=== PATIENT | male | born 1990 | race Hispanic/Latino ===

== ENCOUNTER 2018-03-06 22:44 | Emergency (ER) | payer SELFPAY ==
[2018-03-06 23:11] LABS: Absolute Lymphocytes (CBC) 3.4 K/uL (0.7-4.9); Absolute Monocytes 0.7 K/uL (0.1-1.3); Absolute Neutrophil 4.9 K/uL (1.8-8.0); Basophils % 0.3 % (0-1.3); Eosinophils % 1.9 % (0-4.4); Lymphocytes % 36.8 % (15.3-44.8); MCH 30.5 pg (27.0-35.0); MCV 89.7 fL (80-100); MPV 8.6 fL (7.6-11.3); Monocytes % 7.7 % (3.3-12.3); RBC Red Blood Cell Count 5.12 M/uL (4.33-5.43)
[2018-03-06 23:28] LABS: ALT/SGPT 57 U/L (12-78); AST/SGOT 29 U/L (15-37); Albumin 3.9 g/dL (3.4-5.0); Alkaline Phosphatase 103 U/L (45-117); BUN Blood Urea Nitrogen 13 mg/dL (7-18); Bicarbonate 27 mmol/L (21-32); Bilirubin Direct 0.1 mg/dL (0-0.2); Bilirubin Total 0.5 mg/dL (0.2-1.0); Glucose Level 105 mg/dL (74-106); Magnesium 2.2 mg/dL (1.8-2.4); Potassium 3.9 mmol/L (3.5-5.1); Protein, Total 8.2 g/dL (6.4-8.2); Sodium Level 142 mmol/L (136-145)
--- NOTE | 2018-03-07 01:36 | EDPHYS ---
Physician Documentation [facility] Name: Isra Gillespie Age: 27 yrs Sex: Male : 1990 Arrival Date: 03/06/2018 Time: 22:45 Bed 6 Private MD: ED Physician Chuckie Olmos HPI: 03/07 00:21 This 27 yrs old Male presents to ER via Ambulatory with complaints of pm1 Shortness Of Breath. 00:21 The patient has shortness of breath at rest. Onset: The symptoms/episode began/occurred pm1 at 21:00. Duration: The symptoms are continuous. The patient's shortness of breath is aggravated by nothing, is alleviated by nothing. Associated signs and symptoms: Pertinent positives: Chest pain onset at 2100, Pertinent negatives: non-productive cough, productive cough, diaphoresis, dizziness, fever, nausea, vomiting. The patient has not experienced similar symptoms in the past. The patient has not recently seen a physician. Historical: - Allergies: 00:13 Iodinated Contrast Media - IV Dye; tl1 - Home Meds: 03/06 22:59 None [Active]; tl1 - PMHx: 22:59 None; tl1 - PSHx: 22:59 None; tl1 - Immunization history:: Adult Immunizations up to date. - Social history:: Smoking status: Patient/guardian denies using tobacco, Patient uses alcohol, occasionally. - Ebola Screening: : Patient negative for fever greater than or equal to 101.5 degrees Fahrenheit, and additional compatible Ebola Virus Disease symptoms Patient denies exposure to infectious person Patient denies travel to an Ebola-affected area in the 21 days before illness onset. ROS: 03/07 01:28 Constitutional: Negative for fever, chills, and weight loss, Eyes: Negative for injury, pm1 pain, redness, and discharge, ENT: Negative for injury, pain, and discharge, Neck: Negative for injury, pain, and swelling. Abdomen/GI: Negative for abdominal pain, nausea, vomiting, diarrhea, and constipation, Back: Negative for injury and pain, : Negative for injury, bleeding, discharge, and swelling, MS/Extremity: Negative for injury and deformity, Skin: Negative for injury, rash, and discoloration, Neuro: Negative for headache, weakness, numbness, tingling, and seizure. Cardiovascular: Positive for chest pain, Negative for edema, orthopnea, palpitations. Respiratory: Positive for shortness of breath, at rest. Negative for cough, sputum production, wheezing. Exam: 01:28 Constitutional: This is a well developed, well nourished patient who is awake, alert, pm1 and in no acute distress. Head/Face: Normocephalic, atraumatic. Eyes: Pupils equal round and reactive to light, extra-ocular motions intact. Lids and lashes normal. Conjunctiva and sclera are non-icteric and not injected. Cornea within normal limits. Periorbital areas with no swelling, redness, or edema. ENT: Nares patent. No nasal discharge, no septal abnormalities noted. Tympanic membranes are normal and external auditory canals are clear. Oropharynx with no redness, swelling, or masses, exudates, or evidence of obstruction, uvula midline. Mucous membranes moist. Neck: Trachea midline, no thyromegaly or masses palpated, and no cervical lymphadenopathy. Supple, full range of motion without nuchal rigidity, or vertebral point tenderness. No Meningismus. Chest/axilla: Normal chest wall appearance and motion. Nontender with no deformity. No lesions are appreciated. Cardiovascular: Regular rate and rhythm with a normal S1 and S2. No gallops, murmurs, or rubs. Normal PMI, no JVD. No pulse deficits. Respiratory: Lungs have equal breath sounds bilaterally, clear to auscultation and percussion. No rales, rhonchi or wheezes noted. No increased work of breathing, no retractions or nasal flaring. Abdomen/GI: Soft, non-tender, with normal bowel sounds. No distension or tympany. No guarding or rebound. No evidence of tenderness throughout. Back: No spinal tenderness. No costovertebral tenderness. Full range of motion. 01:28 Skin: Warm, dry with normal turgor. Normal color with no rashes, no lesions, and no evidence of cellulitis. MS/ Extremity: Pulses equal, no cyanosis. Neurovascular intact. Full, normal range of motion. 01:28 NSR 01:28 Neuro: Orientation: is normal, Motor: is normal, moves all fours. Vital Signs: 03/06 22:58 BP 160 / 99; Pulse 76; Resp 16; Temp 98.9; Pulse Ox 98% ; Weight 104.33 kg; Height 5 tl1 ft. 9 in. (175.26 cm); Pain 0/10; 23:40 BP 140 / 94; Pulse 72; Resp 18; Pulse Ox 100% on R/A; tl2 03 00:30 BP 144 / 89; Pulse 57; Resp 18; Pulse Ox 97% on R/A; tl2 01:14 BP 132 / 87; Pulse 64; Resp 16; Pulse Ox 97% on R/A; Pain 0/10; tl1 01:38 BP 136 / 92; Pulse 63; Resp 17; Temp 98.8; Pulse Ox 98% on R/A; Pain 0/10; tl1 03/06 22:58 Body Mass Index 33.96 (104.33 kg, 175.26 cm) tl1 MDM: 03/06 22:51 Patient medically screened. pm1 03/07 01:29 Data reviewed: vital signs. pm1 01:35 Differential diagnosis: asthma, Myocardial Infarction pneumonia, Pulmonary Embolism pm1 Unstable Angina. 01:35 Counseling: I had a detailed discussion with the patient and/or guardian regarding: the pm1 historical points, exam findings, and any diagnostic results supporting the discharge/admit diagnosis, lab results, radiology results, the need for outpatient follow up, to return to the emergency department if symptoms worsen or persist or if there are any questions or concerns that arise at home. 01:35 Data interpreted: Pulse oximetry: on room air is 97 %. Interpretation: normal. pm1 01:41 ED course: Patient without any chest pain or shortness of breath. Refused pain pm1 medication in ER and for prescription. Troponin x2 negative with second troponin at four hours of onset of chest pain and shortness of breath. 03/06 22:54 Order name: Basic Metabolic Panel; Complete Time: 23:33 pm1 03/06 22:54 Order name: CBC with Diff; Complete Time: 23:33 pm1 03/06 22:54 Order name: LFT's; Complete Time: 23:33 pm1 03/06 22:54 Order name: Magnesium; Complete Time: 23:33 pm1 03/06 22:54 Order name: Troponin (emerg Dept Use Only); Complete Time: 23:33 pm1 03/06 22:54 Order name: D-Dimer; Complete Time: 23:33 pm1 03/06 22:54 Order name: XRAY Chest (1 view) pm1 03/06 22:54 Order name: EKG; Complete Time: 22:55 pm1 03/06 22:54 Order name: Cardiac monitoring; Complete Time: 23:00 pm1 03/06 22:54 Order name: EKG - Nurse/Tech; Complete Time: 23:00 pm1 03/06 22:54 Order name: IV Saline Lock; Complete Time: 23:00 pm1 03/06 22:54 Order name: Labs collected and sent; Complete Time: 23:00 pm1 03/06 22:54 Order name: O2 Per Protocol; Complete Time: 23:00 pm1 03/07 00:44 Order name: Troponin (emerg Dept Use Only): Draw \T\ 0100; Complete Time: 01:34 tl2 03/06 22:54 Order name: O2 Sat Monitoring; Complete Time: 23:00 pm1 Administered Medications: No medications were administered Disposition: 07:35 Co-signature as Attending Physician, Chuckie Olmos MD I agree with the assessment and [facility] plan of care. Disposition: 03/07/18 01:36 Discharged to Home. Impression: Chest pain, unspecified. - Condition is Stable. - Discharge Instructions: Nonspecific Chest Pain. - Work release form, Medication Reconciliation Form, Thank You Letter form. - Follow up: Emergency Department; When: As needed; Reason: Worsening of condition. Follow up: Private Physician; When: 2 - 3 days; Reason: Recheck today's complaints, Continuance of care, Re-evaluation by your physician. - Problem is new. - Symptoms have improved. Signatures: Dispatcher [employer] Chuckie Archuleta MD MD cha Lasagna, Tonya RN RN tl1 Elio Cooper NP CLINICAL TRIALS DATA COORDINATOR pm1 Corrections: (The following items were deleted from the chart) 00:13 03/06 22:59 Allergies: No Known Allergies; tl1 tl1 03/07 00:56 03/06 22:54 Urine Dipstick-Ancillary ordered. pm1 tl2 03/07 01:48 01:36 03/07/2018 01:36 Discharged to Home. Impression: Chest pain, unspecified. tl1 Condition is Stable. Forms are Medication Reconciliation Form, Thank You Letter, Antibiotic Education, Prescription Opioid Use. Follow up: Emergency Department; When: As needed; Reason: Worsening of condition. Follow up: Private Physician; When: 2 - 3 days; Reason: Recheck today's complaints, Continuance of care, Re-evaluation by your physician. Problem is new. Symptoms have improved. pm1
--- NOTE | 2018-03-07 01:36 | ER ---
Nurse's Notes [facility] Name: Isra Gillespie Age: 27 yrs Sex: Male : 1990 Arrival Date: 03/06/2018 Time: 22:45 Bed 6 Private MD: Diagnosis: Chest pain, unspecified Presentation: 03/06 22:57 Presenting complaint: Patient states: Patient states he has had chest pressure and it tl1 is worse when lying down. Pt stated he could not sleep because of it. Transition of care: patient was not received from another setting of care. Onset of symptoms was March 06, 2018. Risk Assessment: Do you want to hurt yourself or someone else? Patient reports no desire to harm self or others. Initial Sepsis Screen: Does the patient meet any 2 criteria? No. Patient's initial sepsis screen is negative. Does the patient have a suspected source of infection? No. Patient's initial sepsis screen is negative. Care prior to arrival: None. 22:57 Method Of Arrival: Ambulatory tl1 22:57 Acuity: NEO 3 tl1 Triage Assessment: 23:41 Respiratory: the patient has mild shortness of breath. tl2 23:41 Respiratory: Onset: The symptoms/episode began/occurred gradually. tl1 Historical: - Allergies: 03/07 00:13 Iodinated Contrast Media - IV Dye; tl1 - Home Meds: 03/06 22:59 None [Active]; tl1 - PMHx: 22:59 None; tl1 - PSHx: 22:59 None; tl1 - Immunization history:: Adult Immunizations up to date. - Social history:: Smoking status: Patient/guardian denies using tobacco, Patient uses alcohol, occasionally. - Ebola Screening: : Patient negative for fever greater than or equal to 101.5 degrees Fahrenheit, and additional compatible Ebola Virus Disease symptoms Patient denies exposure to infectious person Patient denies travel to an Ebola-affected area in the 21 days before illness onset. Screenin:00 Abuse screen: Denies threats or abuse. Denies injuries from another. Nutritional tl1 screening: No deficits noted. Tuberculosis screening: No symptoms or risk factors identified. Fall Risk Assessment: 23:01 General: Appears in no apparent distress. Behavior is calm, cooperative, appropriate tl1 for age. Pain: Denies pain. Neuro: Level of Consciousness is awake, alert, obeys commands. Cardiovascular: Reports shortness of breath, Rhythm is regular. Respiratory: Reports shortness of breath at rest Airway is patent Respiratory effort is even, unlabored, Breath sounds are clear bilaterally. GI: Abdomen is non-distended, Bowel sounds present X 4 quads. Abd is soft and non tender X 4 quads. : No signs and/or symptoms were reported regarding the genitourinary system. EENT: No signs and/or symptoms were reported regarding the EENT system. Derm: No signs and/or symptoms reported regarding the dermatologic system. 03/07 00:30 Reassessment: Patient appears in no apparent distress at this time. Patient and/or tl2 family updated on plan of care and expected duration. Pain level reassessed. Patient is alert, oriented x 3, equal unlabored respirations, skin warm/dry/pink. 01:46 Reassessment: Patient and/or family updated on plan of care and expected duration. Pain tl1 level reassessed. Patient is alert, oriented x 3, equal unlabored respirations, skin warm/dry/pink. Patient denies pain at this time. Patient states feeling better. Patient states symptoms have improved. Vital Signs: 03/06 22:58 BP 160 / 99; Pulse 76; Resp 16; Temp 98.9; Pulse Ox 98% ; Weight 104.33 kg; Height 5 tl1 ft. 9 in. (175.26 cm); Pain 0/10; 23:40 BP 140 / 94; Pulse 72; Resp 18; Pulse Ox 100% on R/A; tl2 03/07 00:30 BP 144 / 89; Pulse 57; Resp 18; Pulse Ox 97% on R/A; tl2 01:14 BP 132 / 87; Pulse 64; Resp 16; Pulse Ox 97% on R/A; Pain 0/10; tl1 01:38 BP 136 / 92; Pulse 63; Resp 17; Temp 98.8; Pulse Ox 98% on R/A; Pain 0/10; tl1 03/06 22:58 Body Mass Index 33.96 (104.33 kg, 175.26 cm) tl1 Vitals: 03/06 23:40 Cardiac Rhythm Assessment Regular Sinus rhythm. tl2 ED Course: 22:45 Patient arrived in ED. ds1 22:49 Elio Cooper NP is PHCP. pm1 22:49 Chuckie Olmos MD is Attending Physician. pm1 22:57 Ann Musa, RN is Primary Nurse. tl1 22:58 Triage completed. tl1 23:00 Arm band placed on right wrist. tl1 23:00 No provider procedures requiring assistance completed. Inserted saline lock: 20 gauge tl1 in right antecubital area, using aseptic technique. Blood collected. 23:33 X-ray completed. Portable x-ray completed in exam room. Patient tolerated procedure kw well. 23:35 XRAY Chest (1 view) In Process Unspecified. EDMS 23:41 Patient has correct armband on for positive identification. Placed in gown. Bed in low tl2 position. Call light in reach. Side rails up X 1. 08/03 01:46 IV discontinued, intact, bleeding controlled, No redness/swelling at site. Pressure tl1 dressing applied. Administered Medications: No medications were administered Outcome: 01:36 Discharge ordered by MD. pm1 01:47 Discharged to home ambulatory, with friend. tl1 01:47 Condition: good 01:47 Discharge instructions given to patient, Instructed on discharge instructions, follow up and referral plans. Demonstrated understanding of instructions, follow-up care. 01:48 Patient left the ED. tl1 Signatures: Dispatcher [employer] EDWV Nidhi Hagan ds1 Alexandra Baires Tonya, RN RN tl1 Elio Cooper, [employer] RESTORATION SERVICE SUPERVISOR pm1 Inez Del Real, AMIE RN tl2 Corrections: (The following items were deleted from the chart) 00:13 08/02 22:59 Allergies: No Known Allergies; tl1 tl1
--- NOTE | 2018-03-07 06:47 | EKG ---
Test Date: 2018-03-06 Test Time: 23:06:53 Food Safety Technician: CHRIS MEASUREMENT RESULTS: Intervals: Rate: 68 CT: 168 QRSD: 108 QT: 432 QTc: 459 [place]: P: 25 CT: 168 QRS: 18 T: 4 INTERPRETIVE STATEMENTS: Normal sinus rhythm Normal ECG No previous ECG available for comparison Electronically Signed On 03-07-18 06:46:24 CDT by Brayden Gallegos
--- NOTE | 2018-03-07 07:24 | RAD REPORT ---
EXAM DESCRIPTION: Hallie Single View03/06/2018 11:34 pm CLINICAL HISTORY: Chest pain COMPARISON: none FINDINGS: The lungs appear clear of acute infiltrate. The heart is normal size IMPRESSION: No acute abnormalities displayed
== END 2018-03-07 01:48 | disposition home or self-care (01) ==
LOC: ER 22:44
DX: R07.9 Chest pain, unspecified (principal); Z91.041 Radiographic dye allergy status
CPT/HCPCS: 36415; 71045; 80048; 80076; 83735; 84484; 85025; 85379; 93005; 99284

== ENCOUNTER 2018-06-09 14:38 | Emergency (ER) | payer SELFPAY ==
--- NOTE | 2018-06-09 15:38 | RAD REPORT ---
EXAM DESCRIPTION: RAD - Chest Single View - 06/09/2018 3:28 pm CLINICAL HISTORY: Chest pain;Palpitations Chest pain. COMPARISON: Chest Single View dated 03/06/2018 FINDINGS: Portable technique limits examination quality. The lungs are grossly clear. The heart is normal in size. No displaced fractures. IMPRESSION: No acute intrathoracic process suspected.
[2018-06-09 15:39] LABS: BUN Blood Urea Nitrogen 15 mg/dL (7-18); Bicarbonate 25 mmol/L (21-32); Glucose Level 98 mg/dL (74-106); Potassium 3.9 mmol/L (3.5-5.1); Sodium Level 141 mmol/L (136-145); Troponin (Emerg Dept Use Only) < 0.02 ng/mL (0.0-0.045)
[2018-06-09 15:40] LABS: Absolute Lymphocytes (CBC) 3.1 K/uL (0.7-4.9); Absolute Monocytes 0.7 K/uL (0.1-1.3); Absolute Neutrophil 4.8 K/uL (1.8-8.0); Basophils % 0.4 % (0-1.3); Hematocrit 43.6 % (39.6-49.0); Lymphocytes % 35.2 % (15.3-44.8); MCH 30.4 pg (27.0-35.0); MCV 88.6 fL (80-100); Monocytes % 8.3 % (3.3-12.3); RBC Red Blood Cell Count 4.92 M/uL (4.33-5.43)
--- NOTE | 2018-06-09 16:51 | EDPHYS ---
Physician Documentation [facility] Name: Isra Gillespie Age: 27 yrs Sex: Male : 1990 Arrival Date: 06/09/2018 Time: 14:41 Bed 6 Private MD: None, None ED Physician Sam Klein HPI: 06/09 15:03 This 27 yrs old Male presents to ER via Ambulatory with complaints of Numbness rn Of Hand, Chest Pressure. 15:04 The patient presents with a history of heart racing. Context: The symptoms occur at rn rest. Onset: The symptoms/episode began/occurred just prior to arrival. Duration: The patient or guardian reports a single episode, that lasted 40 minute(s). Modifying factors: The symptoms are aggravated by nothing. The symptoms are alleviated by nothing. Severity of symptoms: At their worst the symptoms were moderate in the emergency department the symptoms are unchanged. The patient has experienced similar episodes in the past. The patient has not recently seen a physician. Reports at work, on phone, no stress, felt sudden onset of palpitations, heart racing, lightheaded, lasted approx 40 min, no fever/sob/vomiting. . Has happened before 2-3 times, worse this time, hasn't been evaluated for this. NO syncope today. No current chest pain or sob. . Historical: - Allergies: 14:46 Iodinated Contrast Media - IV Dye; aa5 - PMHx: 14:46 None; aa5 - PSHx: 14:46 None; aa5 - Immunization history:: Adult Immunizations up to date. - Social history:: Smoking status: Patient/guardian denies using tobacco. - Ebola Screening: : No symptoms or risks identified at this time. - Family history:: not pertinent. - Hospitalizations: : No recent hospitalization is reported. ROS: 15:04 Constitutional: Negative for fever, chills, and weight loss, Eyes: Negative for injury, rn pain, redness, and discharge, Neck: Negative for injury, pain, and swelling, Cardiovascular: Negative for edema, Respiratory: Negative for cough, wheezing, and pleuritic chest pain, Abdomen/GI: Negative for abdominal pain, nausea, vomiting, diarrhea, and constipation, MS/Extremity: Negative for injury and deformity, Skin: Negative for injury, rash, and discoloration, Neuro: Negative for headache, seizure. Exam: 15:04 Constitutional: This is a well developed, well nourished patient who is awake, alert, rn and in no acute distress. Head/Face: Normocephalic, atraumatic. Eyes: Pupils equal round and reactive to light, extra-ocular motions intact. Lids and lashes normal. Conjunctiva and sclera are non-icteric and not injected. Cornea within normal limits. Periorbital areas with no swelling, redness, or edema. Neck: Trachea midline, no thyromegaly or masses palpated, and no cervical lymphadenopathy. Supple, full range of motion without nuchal rigidity, or vertebral point tenderness. No Meningismus. Cardiovascular: Regular rate and rhythm with a normal S1 and S2. No pulse deficits. Respiratory: Lungs have equal breath sounds bilaterally, clear to auscultation, No increased work of breathing, no retractions or nasal flaring. Abdomen/GI: Soft, non-tender. No distension or tympany. No guarding or rebound. No evidence of tenderness throughout. MS/ Extremity: Pulses equal, no cyanosis. Neurovascular intact. Full, normal range of motion. Equal circumference. Neuro: Awake and alert, GCS 15, oriented to person, place, time, and situation. Cranial nerves II-XII grossly intact. Motor strength 5/5 in all extremities. Sensory grossly intact. Vital Signs: 14:46 BP 155 / 91; Pulse 92; Resp 16 S; Temp 99.1(O); Pulse Ox 98% on R/A; Weight 104.33 kg aa5 (R); Height 5 ft. 8 in. (172.72 cm) (R); Pain 0/10; 15:40 BP 146 / 94; Pulse 84; Resp 18; Pulse Ox 98% on R/A; hj 16:52 BP 130 / 95; Pulse 85; Resp 18; Pulse Ox 100% on R/A; hj 14:46 Body Mass Index 34.97 (104.33 kg, 172.72 cm) aa5 MDM: 14:55 Patient medically screened. rn 16:49 Differential diagnosis: arrythmia, dehydration, stress disorder. Data reviewed: vital rn signs, nurses notes, lab test result(s), EKG, radiologic studies, and as a result, I will discharge patient. Counseling: I had a detailed discussion with the patient and/or guardian regarding: the historical points, exam findings, and any diagnostic results supporting the discharge/admit diagnosis, the presence of at least one elevated blood pressure reading (>120/80) during this emergency department visit, lab results, radiology results, the need for outpatient follow up, to return to the emergency department if symptoms worsen or persist or if there are any questions or concerns that arise at home. Response to treatment: the patient's symptoms have resolved after treatment, the patient's condition has returned to base line, the patient is now symptom free, and as a result, I will discharge patient. Special discussion: Based on the patient's history, exam, and Dx evaluation, there is no indication for emergent intervention or inpatient Tx. It is understood by the patient/guardian that if the Sx's persist or worsen they need to return immediately for re-evaluation. I discussed with the patient/guardian in detail that at this point there is no indication for admission to the hospital. It is understood, however, that if the symptoms persist or worsen the patient needs to return immediately for re-evaluation. Special discussion: Based on the history and exam findings, there is no indication for further emergent testing or inpatient evaluation. I discussed with the patient/guardian the need to see the [facility] for further evaluation of the symptoms. 06/09 15:02 Order name: CBC with Diff; Complete Time: 16:09 rn 06/09 15:02 Order name: Basic Metabolic Panel; Complete Time: 15: rn 06/09 15:02 Order name: IV Start; Complete Time: 15:13 rn 06/09 15:02 Order name: Troponin (emerg Dept Use Only); Complete Time: 15:41 rn 06/09 15:02 Order name: EKG; Complete Time: 15: rn 06/09 15:02 Order name: XRAY Chest (1 view); Complete Time: 15:41 rn 06/09 15:02 Order name: EKG - Nurse/Tech; Complete Time: 15:13 rn 06/09 15:02 Order name: Monitor; Complete Time: 15:13 rn Administered Medications: No medications were administered Disposition: 06/09/18 16:50 Discharged to Home. Impression: Palpitations, Chest pain, unspecified. - Condition is Stable. - Discharge Instructions: Nonspecific Chest Pain, Holter Monitoring, Palpitations. - Medication Reconciliation Form, Thank You Letter, Antibiotic Education, Prescription Opioid Use, Work release form form. - Follow up: Cain Bedoya MD; When: As needed; Reason: Recheck today's complaints, Re-evaluation by your physician. - Problem is new. - Symptoms have improved. Signatures: Dispatcher [employer] EDMS Sam Klein MD MD rn Calderon, Audri, RN RN aa5 Ross Cornejo RN RN hj Corrections: (The following items were deleted from the chart) 17:03 16:50 06/09/2018 16:50 Discharged to Home. Impression: Palpitations; Chest pain, hj unspecified. Condition is Stable. Forms are Medication Reconciliation Form, Thank You Letter, Antibiotic Education, Prescription Opioid Use. Follow up: Cain Bedoya; When: As needed; Reason: Recheck today's complaints, Re-evaluation by your physician. Problem is new. Symptoms have improved. rn
--- NOTE | 2018-06-09 16:51 | ER ---
Nurse's Notes [facility] Name: Isra Gillespie Age: 27 yrs Sex: Male : 1990 Arrival Date: 06/09/2018 Time: 14:41 Bed 6 Private MD: None, None Diagnosis: Palpitations;Chest pain, unspecified Presentation: 06/09 14:45 Presenting complaint: Patient states: "I was just waiting for work and all of a sudden aa5 my hands and my face started feeling numb". pt also reports chest pressure and nausea, denies vomiting. Transition of care: patient was not received from another setting of care. Onset of symptoms was June 09, 2018 at 13:40. Risk Assessment: Do you want to hurt yourself or someone else? Patient reports no desire to harm self or others. Initial Sepsis Screen: Does the patient meet any 2 criteria? No. Patient's initial sepsis screen is negative. Does the patient have a suspected source of infection? No. Patient's initial sepsis screen is negative. Care prior to arrival: None. 14:45 Method Of Arrival: Ambulatory aa5 14:45 Acuity: NEO 3 aa5 Triage Assessment: 15:11 General: Appears in no apparent distress. uncomfortable, Behavior is calm, cooperative, hj appropriate for age. Pain: Complains of pain in chest. Cardiovascular: Reports chest pain. Historical: - Allergies: 14:46 Iodinated Contrast Media - IV Dye; aa5 - PMHx: 14:46 None; aa5 - PSHx: 14:46 None; aa5 - Immunization history:: Adult Immunizations up to date. - Social history:: Smoking status: Patient/guardian denies using tobacco. - Ebola Screening: : No symptoms or risks identified at this time. - Family history:: not pertinent. - Hospitalizations: : No recent hospitalization is reported. Screenin:10 Abuse screen: Denies threats or abuse. Denies injuries from another. Nutritional hj screening: No deficits noted. Tuberculosis screening: No symptoms or risk factors identified. Fall Risk None identified. Assessment: 15:12 Pain: Pain radiates to right arm Pain began 4 hours ago. hj 15:40 Reassessment: Patient and/or family updated on plan of care and expected duration. Pain hj level reassessed. Patient is alert, oriented x 3, equal unlabored respirations, skin warm/dry/pink. awaiting results and POC;. 16:53 Reassessment: Patient and/or family updated on plan of care and expected duration. Pain hj level reassessed. Patient is alert, oriented x 3, equal unlabored respirations, skin warm/dry/pink. for D/C; Patient states feeling better. Patient states symptoms have improved. Vital Signs: 14:46 BP 155 / 91; Pulse 92; Resp 16 S; Temp 99.1(O); Pulse Ox 98% on R/A; Weight 104.33 kg aa5 (R); Height 5 ft. 8 in. (172.72 cm) (R); Pain 0/10; 15:40 BP 146 / 94; Pulse 84; Resp 18; Pulse Ox 98% on R/A; hj 16:52 BP 130 / 95; Pulse 85; Resp 18; Pulse Ox 100% on R/A; hj 14:46 Body Mass Index 34.97 (104.33 kg, 172.72 cm) aa5 ED Course: 14:41 Patient arrived in ED. mr 14:42 None, None is Private Physician. mr 14:46 Triage completed. aa5 14:46 Arm band placed on. aa5 14:55 Sam Klein MD is Attending Physician. rn 15:06 EKG done, by chemistry technical officer. reviewed by Sam Klein MD. 3 15:10 Initial lab(s) drawn, by co, sent to lab. Inserted saline lock: 22 gauge in right hj antecubital area, using aseptic technique. Blood collected. 15:11 Patient has correct armband on for positive identification. Placed in gown. Bed in low hj position. Call light in reach. Side rails up X2. 15:11 potline monitor on. Pulse ox on. NIBP on. hj 15:12 Ross Cornejo, AMIE is Primary Nurse. hj 15:12 Patient maintains SpO2 saturation greater than 95% on room air. hj 15:25 X-ray completed. Portable x-ray completed in exam room. Patient tolerated procedure ls3 well. 15:27 XRAY Chest (1 view) In Process Unspecified. EDMS 16:50 Cain Bedoya MD is Referral Physician. rn 16:53 No provider procedures requiring assistance completed. IV discontinued, intact, hj bleeding controlled, No redness/swelling at site. Pressure dressing applied. Administered Medications: No medications were administered Outcome: 16:50 Discharge ordered by . amie 16:54 Discharged to home ambulatory. dev 16:54 Condition: stable 16:54 Discharge instructions given to patient, Instructed on discharge instructions, follow up and referral plans. Demonstrated understanding of instructions, follow-up care. 17:03 Patient left the ED. dev Signatures: Dispatcher [employer] EDSD Kimberli Pulido Roman, MD MD rn Calderon, Audri RN RN aa5 Ross Cornejo RN RN hj Montes, Shakira 3 Jacob Moreland3
--- NOTE | 2018-06-10 06:30 | EKG ---
Test Date: 2018-06-09 Test Time: 14:58:08 Applied Computer Science Professor: MARY MEASUREMENT RESULTS: Intervals: Rate: 74 ND: 152 QRSD: 110 QT: 402 QTc: 446 [place]: P: 37 ND: 152 QRS: 38 T: 23 INTERPRETIVE STATEMENTS: Normal sinus rhythm Normal ECG Compared to ECG 03/06/2018 23:06:53 No significant changes Electronically Signed On 06-10-18 06:29:27 STRUCTURAL ANALYST by Brayden Gallegos
== END 2018-06-09 17:03 | disposition home or self-care (01) ==
LOC: ER 14:38
DX: R07.9 Chest pain, unspecified (principal); R00.2 Palpitations
CPT/HCPCS: 36415; 71045; 80048; 84484; 85025; 93005; 99285